=== PATIENT | female | born 1940 | race Caucasian/White ===

== ENCOUNTER 2017-03-08 19:45 | Inpatient (IN) ==
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
[2017-03-08 20:30] LABS: Basophils % 0.1 % (0.0-0.8); Hematocrit 39.8 VOL% (35.7-47.0); Hemoglobin 14.4 GM/DL (12.0-16.0); Immature Granulocytes % 0.3 %; Immature Granulocytes Absolute 0.04 #; Lymphocytes # 1.5 10*3/uL (1.4-4.0); Mean Corpuscular HGB Conc 36.2 GM/DL (32-36); Mean Corpuscular Hemoglobin 40 PG (27-34); Mean Corpuscular Volume 111.8 FL (87-102); Mean Platelet Volume 10.1 FL (9.6-12.0); Monocytes # 0.6 10*3/uL (0.11-0.8); Monocytes % 4.9 % (1.7-12.7); Neutrophils # 10.2 10*3/uL (1.4-7.4); Neutrophils % 82.7 % (38.7-73.9); Platelet Count 189 T/CUMM (130-400); Red Blood Count 3.56 MC/CUMM (3.8-5.5); Red Cell Distribution Width 13.5 % (9.3-17.3); White Blood Count 12.3 T/CUMM (4-12)
--- NOTE | 2017-03-08 20:34 | XRay Report ---
History: Cough and congestion Date: 03/08/2017 Study: Chest x-ray AP portable Comparison exam: June 06, 2016 There is cardiomegaly. The mediastinal contours are similar. There is no gross pleural effusion. There is increased patchy infiltrate in the right perihilar and infrahilar region and left mid lung zone, superimposed upon chronic lung disease. Osseous structures are unchanged. Impression: Bilateral infiltrate, presumably pneumonia, superimposed upon chronic lung disease. Element of congestive heart failure cannot be excluded PROCEDURE INTERPRETED AT [facility] DEPARTMENT OF RADIOLOGY Final Report Signed by: Dr. Bia Cronin
[2017-03-08] MEDS ORDERED: LEVOFLOXACIN INJ 750 MG in PREMIX 1 EACH IV STA (20:37)
[2017-03-08] MEDS ORDERED: ALBUTEROL/IPRATROPIUM 3 ML NEB RESP TX STA (20:37)
[2017-03-08 20:57] LABS: Alanine Aminotransferase 14 U/L (13-56); Albumin 3.6 G/DL (3.4-5.0); Alkaline Phosphatase 93 U/L (45-117); Aspartate Amino Transferase 15 U/L (0-37); Bilirubin,Total < 0.39 MG/DL (0.2-1.0); Blood Urea Nitrogen 20 MG/DL (7-18); Calcium 9.3 MG/DL (8.5-10.1); Glucose 202 MG/DL (74-106); Osmolality,Calculated 283.7 MOS/KG (273-304); Potassium 4.5 MMOL/L (3.5-5.1); Sodium 138 MMOL/L (136-145); Total Protein 7.1 G/DL (6.4-8.3)
[2017-03-08 21:00] LABS: Lactic Acid 2.5 MMOL/L (0.4-2.0)
[2017-03-08] MEDS ORDERED: LEVOFLOXACIN INJ 150 ML IV ONE (21:01)
[2017-03-08] MEDS ORDERED: HYDROcodone/CHLORPHENIRAMINE ER 5 ML UDCUP PO ONE (21:47)
[2017-03-08] MEDS ORDERED: ONDANSETRON 4 MG/2 ML VIAL IV PRN (21:51)
[2017-03-08] MEDS ORDERED: GLUCAGON 1 MG VIAL IM PRN (21:51)
[2017-03-08] MEDS ORDERED: ACETAMINOPHEN 325 MG TABLET PO PRN (21:51)
[2017-03-08] MEDS ORDERED: DEXTROSE 50% 25 GM/50 ML SYRINGE IV PRN (21:51)
[2017-03-08] MEDS: LEVOFLOXACIN INJ 750 MG in PREMIX 1 EACH IV SCH (23:12)
[2017-03-09] MEDS: ALBUTEROL/IPRATROPIUM 3 ML NEB RESP TX SCH ×2 (03:12→03:13)
[2017-03-09] MEDS ORDERED: ALBUTEROL/IPRATROPIUM 3 ML NEB RESP TX PRN (03:30)
[2017-03-09 06:19] LABS: Hematocrit 34.6 VOL% (35.7-47.0); Hemoglobin 12.4 GM/DL (12.0-16.0); Immature Granulocytes % 0.2 %; Immature Granulocytes Absolute 0.02 #; Lymphocytes # 2.7 10*3/uL (1.4-4.0); Lymphocytes % 30.9 % (21.3-54.2); Mean Corpuscular HGB Conc 35.8 GM/DL (32-36); Mean Corpuscular Hemoglobin 40 PG (27-34); Mean Corpuscular Volume 110.5 FL (87-102); Mean Platelet Volume 10.5 FL (9.6-12.0); Monocytes # 0.6 10*3/uL (0.11-0.8); Monocytes % 6.5 % (1.7-12.7); Neutrophils # 5.5 10*3/uL (1.4-7.4); Neutrophils % 62.4 % (38.7-73.9); Platelet Count 162 T/CUMM (130-400); Red Blood Count 3.13 MC/CUMM (3.8-5.5); Red Cell Distribution Width 13.6 % (9.3-17.3); White Blood Count 8.8 T/CUMM (4-12)
[2017-03-09 06:41] LABS: Giant Platelets Few; Hypochromasia 1+; Ovalocytes Slight; Platelet Estimate Normal
[2017-03-09 07:00] LABS: Calcium 8.8 MG/DL (8.5-10.1); Osmolality,Calculated 279.4 MOS/KG (273-304); Potassium 4.2 MMOL/L (3.5-5.1)
[2017-03-09] MEDS ORDERED: BUTALBITAL/ACETAMIN/CAFFEINE 50-325-40 MG TABLET PO PRN (07:34)
[2017-03-09] MEDS ORDERED: CLORAZEPATE 7.5 MG TABLET PO PRN (07:34)
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
[2017-03-09] MEDS: INSULIN REGULAR 100 UNIT/ML SUBCUT SCH ×4 (08:22→21:09)
--- NOTE | 2017-03-09 08:24 | EKG Report ---
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
[2017-03-09 08:34] LABS: Troponin I Only 0.142 NG/ML (0.00-0.045)
[2017-03-09] MEDS: CITALOPRAM 20 MG TABLET PO SCH (08:50)
[2017-03-09] MEDS: CARVEDILOL 25 MG TABLET PO SCH ×2 (08:50→17:03)
[2017-03-09] MEDS: DOCUSATE SODIUM 100 MG CAPSULE PO SCH ×2 (08:51→20:48)
[2017-03-09] MEDS: POTASSIUM CHLORIDE 10 MEQ TABLET PO SCH ×2 (08:51→21:09)
[2017-03-09] MEDS: LISINOPRIL 10 MG TABLET PO SCH ×2 (08:51→20:48)
[2017-03-09] MEDS: CLOPIDOGREL 75 MG TABLET PO SCH (08:52)
[2017-03-09] MEDS: PANTOPRAZOLE 40 MG TABLET PO SCH (08:52)
[2017-03-09] MEDS: ASPIRIN EC 325 MG TABLET PO SCH (08:52)
[2017-03-09] MEDS: MELOXICAM 7.5 MG TABLET PO SCH (08:52)
[2017-03-09] MEDS: FUROSEMIDE 40 MG TABLET PO SCH (08:52)
[2017-03-09] MEDS ORDERED: LEVOTHYROXINE 125 MCG TABLET PO SCH (09:00)
--- NOTE | 2017-03-09 09:15 | XRay Report ---
XR chest 2V Indication: Shortness of breath Comparison: 08 March 2017 Findings: The heart and mediastinum are stable in size and configuration. The pulmonary vascularity is increased with bilateral increased interstitial lung density. No other lung infiltrates, effusions, pneumothorax or other abnormality is demonstrated. Impression: Findings suggest cardiac decompensation similar to previous. PROCEDURE INTERPRETED AT [facility] DEPARTMENT OF RADIOLOGY Final Report Signed by: Dr. Alejandro Becerril
[2017-03-09 12:46] LABS: Troponin I Only 0.189 NG/ML (0.00-0.045)
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
[2017-03-09] MEDS: GLIMEPIRIDE 2 MG TABLET PO SCH (17:03)
[2017-03-09 18:38] LABS: Troponin I Only 0.133 NG/ML (0.00-0.045)
[2017-03-09] MEDS: FAMOTIDINE 20 MG TABLET PO SCH (20:47)
[2017-03-09] MEDS: traZODone 50 MG TABLET PO SCH (20:48)
[2017-03-09] MEDS: LEVOFLOXACIN INJ 750 MG in PREMIX 1 EACH IV SCH (21:09)
--- NOTE | 2017-03-10 08:31 | Family Practice Progress Note ---
Family Practice - PN: Subj Interval history: Patient states she is feeling better this morning and has less cough and shortness of breath. Chest x-ray shows diffuse interstitial changes consistent with atypical pneumonia but I think she probably has a little congestive heart failure as well. She is noted to have slight elevation of troponin with normal CPK and MB. Will consult cardiology. Exam (Progress Note) - Constitutional Vitals: Period Temp Pulse Resp BP Sys/Rooney Pulse Ox Last 24 Hr 96.7 F-98.4 F 53-71 18-20 110-161/54-94 91-96 Exam: Objectively well-developed white female no acute distress. She is sitting up on the side of the bed eating her breakfast with gusto. She certainly has no dyspnea at rest. Cardiovascular: The heart rates regular with no murmurs or gallops. Respiratory: Patient is noted to have rales in her left upper chest. Abdomen: Abdomen soft and nontender to palpation. Results - Labs CBC & BMP: 03/09/17 04:38 03/09/17 04:38 Lab Results: I have reviewed the past 24 hour labs Assessment and Plan (1) Acute dyspnea Status: Acute Assessment and plan: 03/09/2017: IV antibiotics have been begun cultures were obtained. A BnP, EKG and cardiac isoenzymes will be added. 03/10/2017: Patient certainly has what appears to be an atypical pneumonia with some element of CHF. Her entry level marketing assistant will be consulted. We will continue present IV antibiotic therapy. Repeat chest x-ray in a.m. Current Visit: Yes
--- NOTE | 2017-03-10 09:04 | Pulmonology Progress Note ---
Pulmonary - PN: Subj Interval history: Patient is a 76-year-old white lady that came in with coughing and congestion for just a couple days. She says she had some yellow sputum and low-grade fever. Before that she was not having that much trouble breathing. Her chest x -ray does show some mild interstitial changes. She says she had a good night and is feeling better. She still has a slight cough but otherwise her shortness of breath is better. She does have cardiomegaly and may have some heart disease also. Exam (Progress Note) - Constitutional Vitals: Period Temp Pulse Resp BP Sys/Rooney Pulse Ox Last 24 Hr 96.7 F-98.4 F 53-71 18-20 110-161/54-94 91-96 Exam: General appearance: no acute distress (Patient looks reasonably comfortable in bed. She is sitting up and looks comfortable), over weight - Head Head exam: Present: normal inspection, normocephalic - Eye Eye exam: Present: EOMI. Absent: scleral icterus Pupils: Present: LUIGI - ENT ENT exam: Present: normal exam - Neck Neck exam: Present: normal inspection. Absent: lymphadenopathy, thyromegaly - Respiratory Respiratory exam: Present: She has fairly good air movement with only minimal crackles. She is not having any wheezing now. - Cardiovascular Cardiovascular exam: Present: regular rate and rhythm. Absent: gallop, systolic murmur - GI/Abdominal GI/Abdominal exam: Present: normal bowel sounds, soft. Absent: organomegaly, tenderness - Extremities Exam Extremities exam: Present: other (She does not have any clubbing). Absent: calf tenderness, edema - Neurological Exam Neurological exam: Present: alert, oriented X3, CN II-XII intact - Psychiatric Psychiatric exam: Present: normal affect, normal mood - Skin Skin exam: Present: warm, dry. Absent: rash Results - Labs CBC & BMP: 03/09/17 04:38 03/09/17 04:38 Assessment and Plan (1) Essential (primary) hypertension Status: Chronic Assessment and plan: Patient has a history of hypertension and will continue present medicines. Cardiology will check her today. Current Visit: No (2) Diabetes mellitus Status: Chronic Assessment and plan: Her glucoses will be monitored. Her glucose is 67 this morning. Current Visit: No Qualifiers: Diabetes mellitus type: type 2 Diabetes mellitus complication status: without complication (3) Pneumonia Status: Acute Assessment and plan: She does look like she has mild increased interstitial markings. She will be treated for an atypical pneumonia. She still has some coughing but she feels better. Her blood cultures are negative so far. Will check another chest x- ray tomorrow. Current Visit: Yes (4) Acute dyspnea Status: Acute Assessment and plan: She came in short of breath but she looks comfortable at present. She will continue with her therapy. She is also being treated for mild heart failure. Current Visit: Yes
[2017-03-10] MEDS: CITALOPRAM 20 MG TABLET PO SCH (09:28)
[2017-03-10] MEDS: MELOXICAM 7.5 MG TABLET PO SCH (09:28)
[2017-03-10] MEDS: GLIMEPIRIDE 2 MG TABLET PO SCH ×2 (09:28→17:29)
[2017-03-10] MEDS: ASPIRIN EC 325 MG TABLET PO SCH (09:29)
[2017-03-10] MEDS: FUROSEMIDE 40 MG TABLET PO SCH (09:29)
[2017-03-10] MEDS: LISINOPRIL 10 MG TABLET PO SCH ×2 (09:29→21:42)
[2017-03-10] MEDS: PANTOPRAZOLE 40 MG TABLET PO SCH (09:29)
[2017-03-10] MEDS: CLOPIDOGREL 75 MG TABLET PO SCH (09:30)
[2017-03-10] MEDS: CARVEDILOL 25 MG TABLET PO SCH ×2 (09:30→17:29)
[2017-03-10] MEDS: DOCUSATE SODIUM 100 MG CAPSULE PO SCH ×2 (09:30→21:42)
[2017-03-10] MEDS: POTASSIUM CHLORIDE 10 MEQ TABLET PO SCH ×2 (09:30→21:42)
[2017-03-10] MEDS: INSULIN REGULAR 100 UNIT/ML SUBCUT SCH ×4 (09:33→22:18)
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
[2017-03-10] MEDS: FAMOTIDINE 20 MG TABLET PO SCH (21:42)
[2017-03-10] MEDS: traZODone 50 MG TABLET PO SCH (21:42)
[2017-03-10] MEDS: LEVOFLOXACIN INJ 750 MG in PREMIX 1 EACH IV SCH (22:19)
--- NOTE | 2017-03-11 08:08 | Family Practice Progress Note ---
Family Practice - PN: Subj Interval history: Patient seen and is doing significantly better. States she is able to breathe better. Only had a few wheezes noted in the upper airways. She is still weak and would like to keep her 1 more day to give her some strength and let her walk around. We will continue to monitor closely lab shows good blood sugars. Exam (Progress Note) - Constitutional Vitals: Period Temp Pulse Resp BP Sys/Rooney Pulse Ox Last 24 Hr 96.9 F-98.0 F 56-88 18-20 111-159/53-89 93-95 Exam: Grossly unchanged exam except for she is able to walk just a little bit. No chest pain or shortness of breath at present at rest only Results - Labs CBC & BMP: 03/09/17 04:38 03/09/17 04:38
[2017-03-11] MEDS: CARVEDILOL 25 MG TABLET PO SCH ×2 (08:31→21:39)
[2017-03-11] MEDS: MELOXICAM 7.5 MG TABLET PO SCH (08:32)
[2017-03-11] MEDS: CLOPIDOGREL 75 MG TABLET PO SCH (08:32)
[2017-03-11] MEDS: POTASSIUM CHLORIDE 10 MEQ TABLET PO SCH ×2 (08:32→21:39)
[2017-03-11] MEDS: ASPIRIN EC 325 MG TABLET PO SCH (08:32)
[2017-03-11] MEDS: FUROSEMIDE 40 MG TABLET PO SCH (08:32)
[2017-03-11] MEDS: CITALOPRAM 20 MG TABLET PO SCH (08:32)
[2017-03-11] MEDS: LISINOPRIL 10 MG TABLET PO SCH ×2 (08:32→21:40)
[2017-03-11] MEDS: DOCUSATE SODIUM 100 MG CAPSULE PO SCH ×2 (08:32→21:39)
[2017-03-11] MEDS: GLIMEPIRIDE 2 MG TABLET PO SCH ×2 (08:33→21:40)
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
[2017-03-11 10:21] LABS: Troponin I Only 0.041 NG/ML (0.00-0.045)
[2017-03-11] MEDS: INSULIN REGULAR 100 UNIT/ML SUBCUT SCH (10:25)
[2017-03-11] MEDS: PANTOPRAZOLE 40 MG TABLET PO SCH (10:25)
--- NOTE | 2017-03-11 10:26 | XRay Report ---
2 view chest. Indication: Dyspnea. Comparison: March 09, 2017. The heart is enlarged with left ventricular hypertrophy. The pulmonary vasculature is prominent. The interstitial lung markings are prominent. No consolidation, pneumothorax, or pleural effusion. Impression: Cardiomegaly. Improving but persistent findings of congestive heart failure. PROCEDURE INTERPRETED AT [facility] DEPARTMENT OF RADIOLOGY Final Report Signed by: Dr. Jayda Gonzalez
--- NOTE | 2017-03-11 11:26 | Pulmonology Progress Note ---
Pulmonary - PN: Subj Interval history: This 76-year-old white female has some interstitial pneumonia. Her chest x-ray is clearly better today. She is feeling much better and should be able to go home soon. Exam (Progress Note) - Constitutional Vitals: Period Temp Pulse Resp BP Sys/Rooney Pulse Ox Last 24 Hr 96.9 F-98.0 F 56-88 18-20 111-213/53-106 93-95 Exam: Patient is alert oriented afebrile. Pupils react to light. Throat is clear. Neck supple no bruits. Chest sounds clear today. Heart normal rate and rhythm no murmurs. Abdomen soft nontender no masses. Extremities no clubbing cyanosis or edema. Calves nontender. Results - Labs CBC & BMP: 03/09/17 04:38 03/09/17 04:38 Lab Results: I have reviewed the past 24 hour labs - Diagnostic Findings Procedure: Chest x-ray: image reviewed by me (Chest x-ray is improved. Less interstitial infiltrate.) Assessment and Plan (1) Pneumonia Status: Acute Assessment and plan: This is probably acute interstitial pneumonitis. It has improved radiographically. Patient can be discharged from a pulmonary standpoint Current Visit: Yes
[2017-03-11] MEDS: LEVOFLOXACIN INJ 750 MG in PREMIX 1 EACH IV SCH (21:38)
[2017-03-11] MEDS: FAMOTIDINE 20 MG TABLET PO SCH (21:39)
[2017-03-11] MEDS: traZODone 50 MG TABLET PO SCH (21:40)
--- NOTE | 2017-03-12 08:29 | Discharge Summary ---
Hospital Course - Hospital Course Hospital Course: Ms. Dougherty is a 76 year old female presented emergency room day of admission with increasing cough and dyspnea that started approximately 24 hours prior to admission. Patient states she had no chest pain associated with which she states the cough was productive of some yellow sputum. She was found to have diffuse infiltrate on chest x-ray was elevated white count was admitted for further evaluation. She has improved and breathing is better. She has been up and ambulating and ready to go home. She has been okayed for d/c from Pulmonary standpoint also so we will dishcrge her home with follow with Dr Glaser next week and on po Levaquin. Patient does have a history of paroxysmal atrial fibrillation and sleep apnea. Cardiology clearance was obtained during admission also. Discharge Plan - Discharge Data Disposition: Disch To Home/Self Care Condition at Discharge: Stable Discharge Diet: advance to your usual diet Activity: resume usual activities as tolerated Hygiene: no restrictions Weight Bearing at Discharge: weight bear as tolerated Driving: no restrictions Contact your physician if you experience:: fever over 101, Shortness of breath - Discharge Medications New Albuterol Inhaler [Proventil Inhaler] 2 puff INH Q6HR PRN #1 inhaler PRN Reason: wheeze Levofloxacin Tab [Levaquin Tab] 500 mg PO DAILY #5 tablet Continue Furosemide Tab [Lasix Tab] 40 mg PO QAM cloNIDine TAB [Catapres Tab] 0.3 mg PO BID Potassium Chloride Cap/Tab [K Dur] 10 meq PO BID Trazodone HCl 50 mg PO BEDTIME Ranitidine Tab [Zantac Tab] 300 mg PO QPM Carvedilol [Coreg] 25 mg PO BID Meloxicam [Mobic] 7.5 mg PO QAM Lisinopril 10 mg PO BID NIFEdipine XL TAB [Procardia Xl] 60 mg PO QAM Clorazepate [Tranxene] 7.5 mg PO BID PRN PRN Reason: Anxiety Butalbital/Acet/Caff 50-325-40 [Fioricet 50-325-40 mg Tablet] 1 tablet PO Q12H PRN PRN Reason: Pain Levothyroxine Tab [Synthroid Tab] 125 mcg PO BID Clopidogrel [Plavix] 75 mg PO QAM Aspirin [Ecotrin] 325 mg PO DAILY Glimepiride [Amaryl] 2 mg PO BIDAC Citalopram [CeleXA] 20 mg PO QAM - Follow Up or Referral Follow Up: Bala Glaser MD [Physician] - 1 Week ([facility]) - Forms/Instructions Exam - Constitutional Vitals: Period Temp Pulse Resp BP Sys/Rooney Pulse Ox Last 24 Hr 97 F-98.4 F 51-81 15-20 119-160/56-80 92-97 Discharge Results Procedures and tests throughout hospitalization: Pending Orders 03/08/17 20:25 Blood Culture Stat Labs on day of discharge: Labs from last 24 hours 03/12/17 03/11/17 03/11/17 07:51 20:42 16:28 POC Glucose 78 145 H 103 Total Creatine Kinase CK-MB (CK-2) Troponin I 03/11/17 09:32 POC Glucose Total Creatine Kinase 34 D CK-MB (CK-2) 1.4 Troponin I 0.041 Preliminary micro results at discharge 03/08/17 20:25 Blood Culture - Preliminary Blood No growth at 3 days 03/08/17 20:10 Blood Culture - Preliminary Blood No growth at 3 days DS: Provider Date of admission: 03/08/17 21:51 Primary care physician: Jeramie Gauthier DO Attending physician on admission: Bala Glaser MD Consults: 03/08/17 21:51 Consult to Case Mgmt/Social Srvs [CONS] Routine Reason for Case Mgmt/Social Srvs: Discharge Planning 03/09/17 07:32 Consult to Physical Therapy [CONS] Routine Reason for Physical Therapy: Evaluate and Treat 03/09/17 07:33 Consult to Physician [CONS] Routine Comment: Consulting Provider: Mario Ross Person Notified: alon Date Notified: 03/09/17 Time Notified: 08:45 03/10/17 08:28 Consult to Physician [CONS] Routine Comment: Consulting Provider: Cardiology - [facility] Discharging clinician: Greg Roman DO
[2017-03-12] MEDS: CITALOPRAM 20 MG TABLET PO SCH (09:03)
[2017-03-12] MEDS: FUROSEMIDE 40 MG TABLET PO SCH (09:03)
[2017-03-12] MEDS: DOCUSATE SODIUM 100 MG CAPSULE PO SCH (09:03)
[2017-03-12] MEDS: CLOPIDOGREL 75 MG TABLET PO SCH (09:03)
[2017-03-12] MEDS: MELOXICAM 7.5 MG TABLET PO SCH (09:04)
[2017-03-12] MEDS: GLIMEPIRIDE 2 MG TABLET PO SCH (09:04)
[2017-03-12] MEDS: CARVEDILOL 25 MG TABLET PO SCH (09:05)
[2017-03-12] MEDS: LISINOPRIL 10 MG TABLET PO SCH (09:06)
[2017-03-12] MEDS: POTASSIUM CHLORIDE 10 MEQ TABLET PO SCH (09:06)
[2017-03-12] MEDS: INSULIN REGULAR 100 UNIT/ML SUBCUT SCH (09:06)
[2017-03-12] MEDS: PANTOPRAZOLE 40 MG TABLET PO SCH (09:06)
[2017-03-12] MEDS: ASPIRIN EC 325 MG TABLET PO SCH (09:06)
--- NOTE | 2017-03-12 09:07 | ECHO Report ---
Benita Dougherty Exam Date: 03/11/2017 14:11 Referring Physician: Technologist: abhay Stahl ARDMS, RVT Age: 76 Ht (in): 63 Wt (lb): 185 Gender: F Exam [facility]: [facility] Echo Indications: Chest pain, unspecified, Essential (primary) hypertension, Paroxymal A-Fib, Pneumonia BP: 213 / 106 HR: 57 Rhythm: Atrial fibrillation Technical Quality: Good IMPRESSIONS Normal left ventricular cavity size. Mild left ventricular hypertrophy. Left ventricular ejection fraction is estimated at 45 %. Wall motion reflects conduction delay due to BBB. The right ventricle is normal in size and function. The right atrium is normal in size. The left atrium is mildly enlarged. Mildly thickened mitral valve with mild mitral regurgitation. No mitral valve stenosis. Thickened aortic valve. Mild aortic valve calcification. Mild aortic valve stenosis, mean gradient 14 mmHg, BRODIE 1.5 cm. No aortic valve regurgitation. Morphologically normal tricuspid valve. Trace tricuspid valve regurgitation. Tricuspid regurgitation velocities suggest a PAP of 87 mmHg. Morphologically normal pulmonic valve without significant stenosis. There is no pulmonic regurgitation. Normal pericardium without effusion. Normal ascending aorta dimension. MEASUREMENTS (Male / Female) Normal Values 2D ECHO LV Diastolic Diameter PLAX 4.6 cm 4.2 - 5.9 / 3.9 - 5.3 cm LV Systolic Diameter PLAX 3.6 cm LV Fractional Shortening PLAX 22.0 % IVS Diastolic Thickness 1.4 cm 0.6 - 1.0 / 0.6 - 0.9 cm LVPW Diastolic Thickness 1.4 cm 0.6 - 1.0 / 0.6 - 0.9 cm RV Internal Dim ED PLAX 2.7 cm Aortic Root Diameter 3.3 cm LA Systolic Diameter LX 4.0 cm 3.0 - 4.0 / 2.7 - 3.8 cm DOPPLER TR Peak Velocity 438.0 cm/s TR Peak Gradient 76.7 mmHg FINDINGS Left Ventricle Normal left ventricular cavity size. Mild left ventricular hypertrophy. Left ventricular ejection fraction is estimated at 45 %. Wall motion reflects conduction delay due to BBB. Right Ventricle The right ventricle is normal in size and function. Right Atrium The right atrium is normal in size. Left Atrium The left atrium is mildly enlarged. Mitral Valve Mildly thickened mitral valve with mild mitral regurgitation. No mitral valve stenosis. Aortic Valve Thickened aortic valve. Mild aortic valve calcification. Mild aortic valve stenosis, mean gradient 14 mmHg, BRODIE 1.5 cm. No aortic valve regurgitation. Tricuspid Valve Morphologically normal tricuspid valve. Trace tricuspid valve regurgitation. Tricuspid regurgitation velocities suggest a PAP of 87 mmHg. Pulmonic Valve Morphologically normal pulmonic valve without significant stenosis. There is no pulmonic regurgitation. Pericardium Normal pericardium without effusion. Aorta Normal ascending aorta dimension. Jassi Bey MD (Electronically Signed) Final Date: 12 March 2017 09:06
[2017-03-12 10:30] VITALS: BP 139/102
--- NOTE | 2017-03-12 10:50 | Pulmonology Progress Note ---
Pulmonary - PN: Subj Interval history: This 76-year-old white female has some interstitial pneumonia. Her chest x-ray is clearly better today. She is feeling much better and should be able to go home soon. 03/12/2017 patient is going home today feeling better. Dr. Ross can see her on a as needed basis for her lungs. Exam (Progress Note) - Constitutional Vitals: Period Temp Pulse Resp BP Sys/Rooney Pulse Ox Last 24 Hr 97 F-98.4 F 51-81 15-20 119-160/56-102 92-97 Exam: Patient is alert oriented afebrile. Pupils react to light. Throat is clear. Neck supple no bruits. Chest sounds clear today. Heart normal rate and rhythm no murmurs. Abdomen soft nontender no masses. Extremities no clubbing cyanosis or edema. Calves nontender. Little change from yesterday. Results - Labs CBC & BMP: 03/09/17 04:38 03/09/17 04:38 Lab Results: I have reviewed the past 24 hour labs Assessment and Plan (1) Pneumonia Status: Acute Assessment and plan: This is probably acute interstitial pneumonitis. It has improved radiographically. Patient can be discharged from a pulmonary standpoint 03/12/2017 this is improved. Finish out a week of antibiotic Specialty Discharge - Follow Up or Referrals Follow up with: Bala Glaser MD [Physician] - 1 Week ([facility])
--- NOTE | 2017-03-16 09:06 | Physician Query Form ---
CLICK EDIT DOCUMENT TO SELECT QUERY ANSWER --> OK --> SIGN Ashlyn Arambula RN Clinical Gutter Installer W) [phone] (f) [phone] [email or web address] PROVIDERS: Make your selection(s) from the choices in EACH section by typing an "x" and enter comments in the comment section. Please use your independent medical judgment in providing your response. This request does not imply that any particular answer is desired or expected. CLINICAL INDICATORS: (Providers should not edit this section) Based on documentation of "Probably has a little CHF as well" Echo showed an EF of 45%. BNP of 1356. Continued home medications of PO Lasix and Coreg. Please provide further specificity regarding CHF. ACUITY: ( ) Acute ( ) Chronic (x ) Acute on Chronic ( ) Clinically unable to determine TYPE: (x ) Systolic (HFrEF - heart failure with reduced systolic function/EF) ( ) Diastolic (HFpEF - heart failure with preserved systolic function/EF) ( ) Combined Systolic/Diastolic ( ) Other, please specify: ( ) Clinically unable to determine ( ) Past Medical History of Systolic CHF ( ) Past Medical History of Diastolic CHF ( ) Clinically unable to determine COMMENTS: PLEASE ALSO DOCUMENT RESPONSE IN PROGRESS NOTES AND/OR DISCHARGE SUMMARY Use of terms such as suspected, likely, or probable (associated with a specific diagnosis that is being evaluated, monitored, or treated as if it exists) are acceptable and can be restated in the discharge summary if not ruled out. MTDD
== END 2017-03-12 10:36 | disposition home or self-care (01) | DRG 291 ==
LOC: N.ED 19:45 → N.EDINP 21:51 → N.2E 22:11
PROVIDERS: ADMIT Family Medicine; ATTEND Family Medicine